=== PATIENT | female | born 1975 | race Caucasian/White ===

== ENCOUNTER 2018-05-15 11:47 | Inpatient (IN) | payer OTHER ==
[2018-05-15 13:03] VITALS: BMI 24.7
--- NOTE | 2018-05-15 13:49 | HP ---
CIWA Score Nausea/Vomitin Muscle Tremors: 2 Anxiety: 2 Agitation: 2 Paroxysmal Sweats: 1-Minimal Palms Moist Orientation: 0-Oriented Tacttile Disturbances: 1-Very Mild Itch/Numbness Auditory Disturbances: 1-Very Mild Visual Disturbances: 0-None Headache: 2-Mild CIWA-Ar Total Score: 13 - Admission Criteria OASAS Guidelines: Admission for Medically Managed Detox: Requires at least one of the followin. CIWA greater than 12 2. Seizures within the past 24 hours 3. Delirium tremens within the past 24 hours 4. Hallucinations within the past 24 hours 5. Acute intervention needed for co occurring medical disorder 6. Acute intervention needed for co occurring psychiatric disorder 7. Severe withdrawal that cannot be handled at a lower level of care (continued vomiting, continued diarrhea, abnormal vital signs) requiring intravenous medication and/or fluids 8. Admission ROS S - HPI Chief Complaint: i need help to stop drinking alcohol,cocaine,heroin abused mmtp 110 mgs/day Allergies/Adverse Reactions: Allergies Allergy/AdvReac Type Severity Reaction Status Date / Time No Known Allergies Allergy Verified 05/15/18 12:56 History of Present Illness: this 42 years old female with alcohol,cocaine dependence,heroin abused,mmtp 110 mgs/day, hepatitis c follow up with pmd nicotine dependence on nicotine patch and gum last detox [facility] 03/27 not completed bipolar disorder no medication for 4 moths longest sobriety 8 years plan for out patient program,mmtp after detox - Ebola screening Have you traveled outside of the country in the last 21 days: No (N) Have you had contact with anyone from an Ebola affected area: No Do you have a fever: No - Review of Systems Constitutional: Loss of Appetite, Malaise, Night Sweats, Changes in sleep EENT: reports: Nose Congestion Respiratory: reports: No Symptoms reported Cardiac: reports: No Symptoms Reported GI: reports: Diarrhea, Nausea, Poor Appetite : reports: No Symptoms Reported Musculoskeletal: reports: Muscle Pain Integumentary: reports: Dryness Neuro: reports: Headache, Tremors Endocrine: reports: No Symptoms Reported Hematology: reports: No Symptoms Reported Psychiatric: reports: No Sypmtoms Reported, Judgement Intact, Mood/Affect Appropiate, Orientated x3, other (bipolar disorder) Other Systems: Reviewed and Negative Patient History - Patient Medical History Hx Anemia: No Hx Asthma: No Hx Chronic Obstructive Pulmonary Disease (COPD): No Hx Cancer: No Hx Cardiac Disorders: No Hx Congestive Heart Failure: No Hx Hypertension: No Hx Hypercholesterolemia: No Hx Pacemaker: No HX Cerebrovascular Accident: No Hx Seizures: No Hx Dementia: No Hx Diabetes: No Hx Gastrointestinal Disorders: No Hx Liver Disease: No Hx Genitourinary Disorders: No Hx Sexually Transmitted Disorders: No Hx Renal Disease (ESRD): No Hx Thyroid Disease: No Hx Human Immunodeficiency Virus (HIV): No (last tested 2016 negative) Hx Hepatitis C: Yes (follow up by pmd no treatemnt) Hx Depression: No Hx Suicide Attempt: No Hx Bipolar Disorder: Yes (no med) Hx Schizophrenia: No Other Medical History: no suicidal,no hmicidal - Patient Surgical History Past Surgical History: No - PPD History Previous Implant?: Yes Documented Results: Positive w/o proof Implanted On Prior [facility] Admission?: No PPD to be Administered?: No - Reproductive History Patient is a Female of Child Bearing Age (11 -55 yrs old): Yes Last Menstrual Period: 05/09/18 Patient : No - Smoking Cessation Smoking history: Current every day smoker Have you smoked in the past 12 months: Yes Aproximately how many cigarettes per day: 20 Cigars Per Day: 0 Hx Chewing Tobacco Use: No Initiated information on smoking cessation: Yes 'Breaking Loose' booklet given: 05/15/18 - Substance & Tx. History Hx Alcohol Use: Yes Hx Substance Use: Yes Substance Use Type: Alcohol, Cocaine, Heroin Hx Substance Use Treatment: Yes ([facility] 03/27 not completed) - Substances abused Heroin Substance route: Injection Frequency: Daily Amount used: 1 bundle Age of first use: 17 Date of last use: 05/15/18 Alcohol Substance route: Oral Frequency: Daily Amount used: 5 beers ( 40 oz ). Age of first use: 15 Date of last use: 05/15/18 Cocaine Substance route: Injection Frequency: Daily Amount used: 20 bags Age of first use: 17 Date of last use: 05/15/18 Family Disease History - Family Disease History Family Disease History: Other: Brother (dsa.), Sister (dsa) Admission Physical Exam [facility] - Vital Signs Vital Signs: Vital Signs - 24 hr 05/15/18 05/15/18 12:56 13:26 Temperature 98.1 F 98.1 F Pulse Rate 65 65 Respiratory 18 18 Rate Blood Pressure 112/68 112/68 - Physical General Appearance: Yes: Moderate Distress, Tremorous, Irritable, Sweating, Anxious HEENTM: Yes: Normal ENT Inspection, CRYSTAL, Pharynx Normal Respiratory: Yes: Lungs Clear, Normal Breath Sounds, No Respiratory Distress Neck: Yes: Within Normal Limits, Supple, Trachea in good position Breast: Yes: Breast Exam Deferred Cardiology: Yes: Within Normal Limits, Regular Rhythm, Regular Rate, S1, S2 Abdominal: Yes: Within Normal Limits, Normal Bowel Sounds, Non Tender, Flat Genitourinary: Yes: Within Normal Limits Back: Yes: Muscle Spasm Musculoskeletal: Yes: Back pain, Muscle Pain Extremities: Yes: Tremors Neurological: Yes: edger hand II-XII NML intact, Alert, Motor Strength 5/5 Integumentary: Yes: Dry Lymphatic: Yes: Within Normal Limits - Diagnostic (1) Alcohol dependence with uncomplicated withdrawal Current Visit: Yes Status: Acute (2) Uncomplicated sedative, hypnotic or anxiolytic withdrawal Current Visit: Yes Status: Acute (3) Heroin abuse Current Visit: Yes Status: Acute (4) Methadone maintenance therapy patient Current Visit: Yes Status: Acute (5) IVDU (intravenous drug user) Current Visit: Yes Status: Acute (6) Nicotine dependence Current Visit: Yes Status: Acute (7) Hepatitis C Current Visit: Yes Status: Acute (8) Positive PPD Current Visit: Yes Status: Acute (9) Methadone maintenance therapy patient Current Visit: Yes Status: Acute Cleared for Admission S - Detox or Rehab [facility] Level of Care: Medically Managed Detox Regimen/Protocol: Valium Breathalyzer - Breathalyzer Breathalyzer: 0 POC Urine test - Test device test lot number: [id number] Expiration date: 10/07/19 - Control test control: Yes - Result Urine Test Results: Negative - NO line present Urine Drug Screen - Test Device Lot number: [id number] Expiration date: 01/06/20 - Control Is test valid?: Yes - Results Drug screen NEGATIVE: No Urine drug screen results: ELAINE-Cocaine, FEN-Fentanyl, MOP-Opiates, MTD-Methadone , BZO-Benzodiazepines Inpatient Rehab Admission - Rehab Decision to Admit Inpatient rehab admission?: No
[2018-05-15] MEDS ORDERED: IBUPROFEN 400 MG TABLET (FP) PO PRN (14:04)
[2018-05-15] MEDS ORDERED: MENTHOL/PHENOL 1 EACH UD MM PRN (14:04)
[2018-05-15] MEDS ORDERED: ACETAMINOPHEN 325 MG TABLET (FP) PO PRN ×2 (14:04)
[2018-05-15] MEDS ORDERED: MAGNESIUM HYDROX 2400MG/30ML ORAL SUSPENSION 30 ML CUP PO PRN (14:04)
[2018-05-15] MEDS ORDERED: MAG HYDROX/AL HYDROX/SIMETH 30 ML UNIT-DOSE CUP PO PRN (14:04)
[2018-05-15] MEDS ORDERED: METHOCARBAMOL 500 MG TABLET PO PRN (14:04)
[2018-05-15] MEDS ORDERED: MAGNESIUM CITRATE 300 ML BOTTLE PO PRN (14:04)
[2018-05-15] MEDS ORDERED: BISMUTH SUBSALICYLATE 262 MG/15 ML BTL PO PRN (14:04)
[2018-05-15] MEDS ORDERED: hydrOXYzine PAMOATE 25 MG CAPSULE (FP) PO PRN (14:04)
[2018-05-15] MEDS: NICOTINE 21 MG/24 HOURS TOPICAL PATCH TD SCH (15:02)
[2018-05-15] MEDS: diazePAM 5 MG TABLET PO PRN (15:04)
--- NOTE | 2018-05-15 15:31 | EKG ---
Test Reason : Blood Pressure : / mmHG Vent. Rate : 056 BPM Atrial Rate : 056 BPM P-R Int : 146 ms QRS Dur : 078 ms QT Int : 468 ms P-R-T Axes : 072 065 054 degrees QTc Int : 451 ms SINUS BRADYCARDIA MINIMAL VOLTAGE CRITERIA FOR LVH, MAY BE NORMAL VARIANT BORDERLINE ECG NO PREVIOUS ECGS AVAILABLE Confirmed by MD Andrade, Bean ([id number]) on 05/15/2018 3:31:23 PM Referred By: Confirmed By:Bean Zafar MD
[2018-05-15] MEDS ORDERED: hydrOXYzine HCL 25 MG TABLET (FP) PO PRN (18:47)
[2018-05-15 19:22] LABS: PH,URINE 5.5 (5.0-8.0); URINE APPEARANCE TURBID; URINE BILIRUBIN NEGATIVE (NEGATIVE); URINE COLOR YELLOW; URINE GLUCOSE (UA) NEGATIVE (NEGATIVE); URINE KETONE NEGATIVE (NEGATIVE); URINE LEUK ESTERASE NEGATIVE (NEGATIVE); URINE NITRITE NEGATIVE (NEGATIVE); URINE PROTEIN NEGATIVE (NEGATIVE); URINE UROBILINOGEN 0.2 mg/dL (0.2-1.0)
[2018-05-15] MEDS: THIAMINE HCL 100 MG TABLET (FP) PO SCH (21:39)
[2018-05-15] MEDS: diazePAM 5 MG TABLET PO SCH (21:40)
[2018-05-15] MEDS: MELATONIN 5 MG TABLETS PO PRN (21:40)
[2018-05-15] MEDS ORDERED: NICOTINE POLACRILEX 4 MG GUM BUC PRN (22:20)
--- NOTE | 2018-05-15 22:21 | PN ---
S Progress Note Note: Vital Signs Temperature 96.7 F L 05/15/18 21:42 Pulse Rate 64 05/15/18 21:42 Respiratory Rate 16 05/15/18 21:42 Blood Pressure 130/90 05/15/18 21:42 O2 Sat by Pulse Oximetry (%) patient requested nicotine gum reports smokes to pack per day 4mg gum ordered
[2018-05-16] MEDS: diazePAM 5 MG TABLET PO SCH ×3 (06:24→22:10)
[2018-05-16] MEDS ORDERED: METHADONE HCL 10 MG TABLET PO ONE (08:18)
[2018-05-16] MEDS ORDERED: METHADONE 80 MG, METHADONE 30 MG PO ONE (08:35)
[2018-05-16] MEDS: diazePAM 5 MG TABLET PO PRN ×2 (08:51→18:45)
[2018-05-16] MEDS ORDERED: METHADONE HCL 10 MG TABLET ONE (09:27)
[2018-05-16] MEDS ORDERED: METHADONE HCL 40 MG DISPERSABLE TABLET ONE (09:28)
[2018-05-16 09:54] LABS: ALK PHOS 63 U/L (45-117); ANION GAP 6 MMOL/L (8-16); BILIRUBIN,TOTAL 0.1 mg/dL (0.2-1); BLOOD UREA NITROGEN 12 mg/dL (7-18); CALCIUM 7.6 mg/dL (8.5-10.1); CHLORIDE 106 mmol/L (98-107); CO2 29 mmol/L (21-32); CREATININE 0.6 mg/dL (0.55-1.3); GLUCOSE,RANDOM 96 mg/dL (74-106); POTASSIUM 3.6 mmol/L (3.5-5.1); SGOT/AST 14 U/L (15-37); SGPT/ALT 17 U/L (13-61); SODIUM 141 mmol/L (136-145); TOT PROT 6.4 g/dl (6.4-8.2)
[2018-05-16 10:07] LABS: HEMATOCRIT 38.1 % (32.4-45.2); HEMOGLOBIN 12.6 GM/dL (10.7-15.3); MCH 29.4 pg (25.7-33.7); MCHC 33.1 g/dl (32.0-36.0); MEAN CELL VOLUME 88.6 fl (80-96); MEAN PLT VOLUME 7.7 fl (7.5-11.1); PLATELET COUNT 218 K/MM3 (134-434); RDW 13.3 % (11.6-15.6); WHITE BLOOD COUNT 4.1 K/mm3 (4.0-10.0)
[2018-05-16] MEDS: NICOTINE 21 MG/24 HOURS TOPICAL PATCH TD SCH (10:39)
[2018-05-16] MEDS: PRENATAL VITAMINS W/ FOLIC ACID TABLET (FP) PO SCH (10:41)
[2018-05-16 11:15] LABS: SICKLE CELL SCREEN NEGATIVE (NEGATIVE)
--- NOTE | 2018-05-16 12:54 | CONSULT ---
[facility] Psychiatric Consult - Data Date of interview: 05/16/18 Admission source: [facility] Identifying data: First admission to [facility] for this 42 y/o female self-referred for detoxification treatment (alcohol, cocaine, heroin). Examined at [address] [place] [address]. Patient is , a mother of eight, domiciled, unemployed and supporeted on SSI benefits. Substance Abuse History: Confirmed by patient in this interview. Ms Tinajero admits to chronic use of xanax (bought in the streets), heroin (IVDU) up to two bundles a day and spends an average of 100 dollars daily on cocaine (IVDU) + consumption of 6-10 beers a day. Smokes one pack of cigarettes daily. Additional details in current [facility] report : Details in current [facility] report as follows : Smoking history: Current every day smoker. Have you smoked in the past 12 months: Yes. Aproximately how many cigarettes per day: 20. Cigars Per Day: 0. Hx Chewing Tobacco Use: No. Initiated information on smoking cessation : Yes. 'Breaking Loose' booklet given: 05/15/18. - Substance & Tx. History. Hx Alcohol Use: Yes. Hx Substance Use: Yes. Substance Use Type: Alcohol, Cocaine, Heroin. Hx Substance [facility]: [facility] . - Substances abused. Heroin. Substance route: Injection. Frequency: Daily. Amount used: 1 bundle. Age of first use: 17. Date of last use: . Alcohol. Substance route: Oral. Frequency: Daily. Amount used: 5 beers ( 40 oz ). Age of first use: 15. Date of last use: 05/15/18. Cocaine. Substance route: Injection. Frequency: Daily. Amount used: 20 bags. Age of first use: 17. Date of last use: 05/15/18 Medical History: Remarkable for a history of positive PPD, hepatitis C, cirrhosis of liver (patient's report), hypertension and bronchial asthma. Psychiatric History: Patient endorses a history of one psychiatric hospitalization, years ago, at a facility in [place]. Reportedly diagnosed with MDD and Bipolar Disorder. Ms Tinajero remembers past treatment on a regimen of aripriprazole, zolpidem and " another medication ". She has NOT taken these medications for four months. Used to get psychiatric OPD services at [facility]. History of one suicide attempt via overdose with pills. Patient is currently on methadone maintenance (110 mg/day). Physical/Sexual Abuse/Trauma History: Patient declines to discuss this domain. Additional Comment: Urine drug screen results: ELAINE-Cocaine, FEN-Fentanyl, MOP- Opiates, MTD-Methadone, BZO-Benzodiazepines. Noted. Mental Status Exam - Mental Status Exam Alert and Oriented to: Time, Place, Person Cognitive Function: Good Patient Appearance: Well Groomed Mood: Nervous, Withdrawn, Anxious, Irritable Affect: Appropriate, Mood Congruent Patient Behavior: Fatigued, Appropriate, Cooperative Speech Pattern: Clear (faroese-fluent) Voice Loudness: Normal Thought Process: Goal Oriented Thought Disorder: Not Present Hallucinations: Denies Suicidal Ideation: Denies Homicidal Ideation: Denies Insight/Judgement: Poor Sleep: Poorly, Difficulty falling asleep Appetite: Good Muscle strength/Tone: Normal Gait/Station: Normal Psychiatric Findings - Problem List ([place] 1, 2,3) (1) Alcohol dependence with uncomplicated withdrawal Current Visit: Yes Status: Acute (2) Uncomplicated sedative, hypnotic or anxiolytic withdrawal Current Visit: Yes Status: Acute (3) Opioid dependence on agonist therapy Current Visit: Yes Status: Chronic (4) Cocaine dependence Current Visit: Yes Status: Chronic (5) Nicotine dependence Current Visit: Yes Status: Chronic (6) Substance induced mood disorder Current Visit: Yes Status: Chronic (7) Insomnia Current Visit: Yes Status: Chronic (8) Non-compliance Current Visit: Yes Status: Chronic - Initial Treatment Plan Initial Treatment Plan: Psychoeducation. Sleep hygiene. Support. Strategies for relapse prevention : discussed in this session. Motivational counseling. AA/NA meetings. Groups. Insomnia is addressed with melatonin at bedtime. Side effects/ benefits discussed. Patient is agreeable with this plan of care. Ms Tinajero declines to resume aripriprazole. Observation.
--- NOTE | 2018-05-16 15:51 | PN ---
[facility] CIWA - CIWA Score Nausea/Vomitin-Mild Nausea/No Vomiting Muscle Tremors: 2 Anxiety: 1-Mildly Anxious Agitation: 2 Paroxysmal Sweats: 1-Minimal Palms Moist Orientation: 0-Oriented Tacttile Disturbances: 0-None Auditory Disturbances: 0-None Visual Disturbances: 0-None Headache: 0-None Present CIWA-Ar Total Score: 7 S Progress Note (SOAP) Subjective: patient received methadone 110 mg today doing better this afternoon ambulating on hallway Objective: 05/16/18 15:49 Vital Signs Temperature 98.4 F 05/16/18 13:36 Pulse Rate 72 05/16/18 13:36 Respiratory Rate 18 05/16/18 13:36 Blood Pressure 126/70 05/16/18 13:36 O2 Sat by Pulse Oximetry (%) Laboratory Last Values WBC 4.1 K/mm3 (4.0-10.0) 05/16/18 07:00 RBC 4.30 M/mm3 (3.60-5.2) 05/16/18 07:00 Hgb 12.6 GM/dL (10.7-15.3) 05/16/18 07:00 Hct 38.1 % (32.4-45.2) 05/16/18 07:00 MCV 88.6 fl (80-96) 05/16/18 07:00 MCH 29.4 pg (25.7-33.7) 05/16/18 07:00 MCHC 33.1 g/dl (32.0-36.0) 05/16/18 07:00 RDW 13.3 % (11.6-15.6) 05/16/18 07:00 Plt Count 218 K/MM3 (134-434) 05/16/18 07:00 MPV 7.7 fl (7.5-11.1) 05/16/18 07:00 Sickle Cell Screen Negative (NEGATIVE) 05/16/18 07:00 Sodium 141 mmol/L (136-145) 05/16/18 07:00 Potassium 3.6 mmol/L (3.5-5.1) 05/16/18 07:00 Chloride 106 mmol/L (98-107) 05/16/18 07:00 Carbon Dioxide 29 mmol/L (21-32) 05/16/18 07:00 Anion Gap 6 MMOL/L (8-16) L 05/16/18 07:00 BUN 12 mg/dL (7-18) 05/16/18 07:00 Creatinine 0.6 mg/dL (0.55-1.3) 05/16/18 07:00 Creat Clearance w eGFR 110.72 (>60) 05/16/18 07:00 Random Glucose 96 mg/dL (74-106) 05/16/18 07:00 Calcium 7.6 mg/dL (8.5-10.1) L 05/16/18 07:00 Total Bilirubin 0.1 mg/dL (0.2-1) L 05/16/18 07:00 AST 14 U/L (15-37) L 05/16/18 07:00 ALT 17 U/L (13-61) 05/16/18 07:00 Alkaline Phosphatase 63 U/L (45-117) 05/16/18 07:00 Total Protein 6.4 g/dl (6.4-8.2) 05/16/18 07:00 Albumin 3.0 g/dl (3.4-5.0) L 05/16/18 07:00 Urine Color Yellow 05/15/18 15:40 Urine Appearance Turbid 05/15/18 15:40 Urine pH 5.5 (5.0-8.0) 05/15/18 15:40 Ur Specific [place] 1.020 (1.010-1.035) 05/15/18 15:40 Urine Protein Negative (NEGATIVE) 05/15/18 15:40 Urine Glucose (UA) Negative (NEGATIVE) 05/15/18 15:40 Urine Ketones Negative (NEGATIVE) 05/15/18 15:40 Urine Blood Negative (NEGATIVE) 05/15/18 15:40 Urine Nitrite Negative (NEGATIVE) 05/15/18 15:40 Urine Bilirubin Negative (NEGATIVE) 05/15/18 15:40 Urine Urobilinogen 0.2 mg/dL (0.2-1.0) 05/15/18 15:40 Ur Leukocyte Esterase Negative (NEGATIVE) 05/15/18 15:40 RPR Titer Nonreactive (NONREACTIVE) 05/16/18 07:00 lab noted low calcium ca++ supplement 05/16/18 15:50 Assessment: 05/16/18 15:51 withdrawal sx Plan: continue detox
[2018-05-16] MEDS: CALCIUM 250MG/VIT-D 125 UNITS 1 COMBO TABLET PO SCH (22:09)
[2018-05-16] MEDS: THIAMINE HCL 100 MG TABLET (FP) PO SCH (22:09)
[2018-05-16] MEDS: MELATONIN 5 MG TABLETS PO PRN (22:10)
[2018-05-17] MEDS ORDERED: METHADONE HCL 10 MG TABLET ONE ×2 (04:32→08:41)
[2018-05-17] MEDS ORDERED: METHADONE HCL 40 MG DISPERSABLE TABLET ONE ×2 (04:33→08:42)
[2018-05-17] MEDS ORDERED: METHADONE 80 MG, METHADONE 30 MG PO SCH (06:00)
[2018-05-17] MEDS ORDERED: METHADONE HCL 10 MG TABLET PO SCH (06:00)
[2018-05-17] MEDS: CALCIUM 250MG/VIT-D 125 UNITS 1 COMBO TABLET PO SCH ×2 (10:20→22:12)
[2018-05-17] MEDS: diazePAM 5 MG TABLET PO SCH ×2 (10:20→22:12)
[2018-05-17] MEDS: METHADONE 80 MG, METHADONE 30 MG PO SCH (10:20)
[2018-05-17] MEDS: PRENATAL VITAMINS W/ FOLIC ACID TABLET (FP) PO SCH (10:20)
[2018-05-17] MEDS: NICOTINE 21 MG/24 HOURS TOPICAL PATCH TD SCH (10:21)
[2018-05-17] MEDS: diazePAM 5 MG TABLET PO PRN (13:39)
--- NOTE | 2018-05-17 15:03 | PN ---
[facility] CIWA - CIWA Score Nausea/Vomitin-No Nausea/No Vomiting Muscle Tremors: 1-None Visible, but [place] Anxiety: 1-Mildly Anxious Agitation: 1-Slight > Activity Paroxysmal Sweats: 1-Minimal Palms Moist Orientation: 0-Oriented Tacttile Disturbances: 0-None Auditory Disturbances: 0-None Visual Disturbances: 0-None Headache: 0-None Present CIWA-Ar Total Score: 4 BHS Progress Note (SOAP) Subjective: feeling better patient agrees to return to methadone program for medical and mental issues Objective: 05/17/18 15:02 Vital Signs Temperature 98.1 F 05/17/18 13:27 Pulse Rate 64 05/17/18 13:27 Respiratory Rate 16 05/17/18 13:27 Blood Pressure 129/89 05/17/18 13:27 O2 Sat by Pulse Oximetry (%) Laboratory Last Values WBC 4.1 K/mm3 (4.0-10.0) 05/16/18 07:00 RBC 4.30 M/mm3 (3.60-5.2) 05/16/18 07:00 Hgb 12.6 GM/dL (10.7-15.3) 05/16/18 07:00 Hct 38.1 % (32.4-45.2) 05/16/18 07:00 MCV 88.6 fl (80-96) 05/16/18 07:00 MCH 29.4 pg (25.7-33.7) 05/16/18 07:00 MCHC 33.1 g/dl (32.0-36.0) 05/16/18 07:00 RDW 13.3 % (11.6-15.6) 05/16/18 07:00 Plt Count 218 K/MM3 (134-434) 05/16/18 07:00 MPV 7.7 fl (7.5-11.1) 05/16/18 07:00 Sickle Cell Screen Negative (NEGATIVE) 05/16/18 07:00 Sodium 141 mmol/L (136-145) 05/16/18 07:00 Potassium 3.6 mmol/L (3.5-5.1) 05/16/18 07:00 Chloride 106 mmol/L (98-107) 05/16/18 07:00 Carbon Dioxide 29 mmol/L (21-32) 05/16/18 07:00 Anion Gap 6 MMOL/L (8-16) L 05/16/18 07:00 BUN 12 mg/dL (7-18) 05/16/18 07:00 Creatinine 0.6 mg/dL (0.55-1.3) 05/16/18 07:00 Creat Clearance w eGFR 110.72 (>60) 05/16/18 07:00 Random Glucose 96 mg/dL (74-106) 05/16/18 07:00 Calcium 7.6 mg/dL (8.5-10.1) L 05/16/18 07:00 Total Bilirubin 0.1 mg/dL (0.2-1) L 05/16/18 07:00 AST 14 U/L (15-37) L 05/16/18 07:00 ALT 17 U/L (13-61) 05/16/18 07:00 Alkaline Phosphatase 63 U/L (45-117) 05/16/18 07:00 Total Protein 6.4 g/dl (6.4-8.2) 05/16/18 07:00 Albumin 3.0 g/dl (3.4-5.0) L 05/16/18 07:00 Urine Color Yellow 05/15/18 15:40 Urine Appearance Turbid 05/15/18 15:40 Urine pH 5.5 (5.0-8.0) 05/15/18 15:40 Ur Specific [place] 1.020 (1.010-1.035) 05/15/18 15:40 Urine Protein Negative (NEGATIVE) 05/15/18 15:40 Urine Glucose (UA) Negative (NEGATIVE) 05/15/18 15:40 Urine Ketones Negative (NEGATIVE) 05/15/18 15:40 Urine Blood Negative (NEGATIVE) 05/15/18 15:40 Urine Nitrite Negative (NEGATIVE) 05/15/18 15:40 Urine Bilirubin Negative (NEGATIVE) 05/15/18 15:40 Urine Urobilinogen 0.2 mg/dL (0.2-1.0) 05/15/18 15:40 Ur Leukocyte Esterase Negative (NEGATIVE) 05/15/18 15:40 RPR Titer Nonreactive (NONREACTIVE) 05/16/18 07:00 lab noted Assessment: 05/17/18 15:02 mild withdrawal sx Plan: continue detox
[2018-05-17] MEDS: THIAMINE HCL 100 MG TABLET (FP) PO SCH (22:12)
[2018-05-17] MEDS: MELATONIN 5 MG TABLETS PO PRN (23:40)
[2018-05-18] MEDS ORDERED: diazePAM 5 MG TABLET PO SCH (06:00)
[2018-05-18] MEDS ORDERED: METHADONE HCL 10 MG TABLET ONE (09:01)
[2018-05-18] MEDS ORDERED: METHADONE HCL 40 MG DISPERSABLE TABLET ONE (09:02)
[2018-05-18] MEDS: METHADONE 80 MG, METHADONE 30 MG PO SCH (09:03)
[2018-05-18] MEDS: NICOTINE 21 MG/24 HOURS TOPICAL PATCH TD SCH (09:03)
[2018-05-18] MEDS: CALCIUM 250MG/VIT-D 125 UNITS 1 COMBO TABLET PO SCH (09:03)
[2018-05-18 09:20] VITALS: BP 119/89; PULSE 75; TEMP 98.9
--- NOTE | 2018-05-18 18:15 | DS ---
[facility] Detox Discharge Summary Admission Date: 05/15/18 Discharge Date: 05/18/18 - History Present History: Alcohol Dependence, Opioid Dependence, Sedative Dependence, MMTP Additional Comments: PATIENT RETURNING TO PREVIOUS [facility] ([place], [place]) FOR AFTERCARE. PATIENT WAS DISCHARGED FROM DETOX UNIT IN STABLE MEDICAL CONDITION. Pertinent Past History: Hep C, Bipolar Disorder, M.M.T.P., History of Positive PPD, I.V.D.U. ( Intravenous Drug User), Nicotine Dependence. - Physical Exam Results Vital Signs: Vital Signs Temperature 98.9 F 05/18/18 09:19 Pulse Rate 75 05/18/18 09:19 Respiratory Rate 18 05/18/18 09:19 Blood Pressure 119/89 05/18/18 09:19 O2 Sat by Pulse Oximetry (%) Pertinent Admission Physical Exam Findings: WITHDRAWAL SYMPTOMS. Laboratory Tests 05/15/18 05/16/18 05/16/18 15:40 07:00 07:00 WBC 4.1 RBC 4.30 Hgb 12.6 Hct 38.1 MCV 88.6 MCH 29.4 MCHC 33.1 RDW 13.3 Plt Count 218 MPV 7.7 Sickle Cell Screen Negative Sodium 141 Potassium 3.6 Chloride 106 Carbon Dioxide 29 Anion Gap 6 L BUN 12 Creatinine 0.6 Creat Clearance w eGFR 110.72 Random Glucose 96 Calcium 7.6 L Total Bilirubin 0.1 L AST 14 L ALT 17 Alkaline Phosphatase 63 Total Protein 6.4 Albumin 3.0 L Urine Color Yellow Urine Appearance Turbid Urine pH 5.5 Ur Specific [place] 1.020 Urine Protein Negative Urine Glucose (UA) Negative Urine Ketones Negative Urine Blood Negative Urine Nitrite Negative Urine Bilirubin Negative Urine Urobilinogen 0.2 Ur Leukocyte Esterase Negative RPR Titer 05/16/18 07:00 WBC RBC Hgb Hct MCV MCH MCHC RDW Plt Count MPV Sickle Cell Screen Sodium Potassium Chloride Carbon Dioxide Anion Gap BUN Creatinine Creat Clearance w eGFR Random Glucose Calcium Total Bilirubin AST ALT Alkaline Phosphatase Total Protein Albumin Urine Color Urine Appearance Urine pH Ur Specific [place] Urine Protein Urine Glucose (UA) Urine Ketones Urine Blood Urine Nitrite Urine Bilirubin Urine Urobilinogen Ur Leukocyte Esterase RPR Titer Nonreactive LABS NOTED. - Treatment Hospital Course: Detox Protocol Followed, Detoxed Safely, Responded well, Discharged Condition Good Patient has Accepted a Rehab Referral to: PT. RETURNING TO [facility]. - Medication Discharge Medications: Ambulatory Orders NK [No Known Home Medication] 05/15/18 - Diagnosis (1) Alcohol dependence with uncomplicated withdrawal Status: Acute (2) Hepatitis C Status: Chronic Qualifiers: Viral hepatitis chronicity: chronic Hepatic coma status: without hepatic coma Qualified Code(s): B18.2 - Chronic viral hepatitis C (3) Heroin abuse Status: Acute (4) IVDU (intravenous drug user) Status: Acute (5) Methadone maintenance therapy patient Status: Acute (6) Positive PPD Status: Chronic (7) Uncomplicated sedative, hypnotic or anxiolytic withdrawal Status: Acute (8) Nicotine dependence Status: Chronic Qualifiers: Nicotine product type: cigarettes Substance use status: uncomplicated Qualified Code(s): F17.210 - Nicotine dependence, cigarettes, uncomplicated - AMA Did Patient Leave Against Medical Advice: No
== END 2018-05-18 10:05 | disposition home or self-care (01) | DRG 773 ==
LOC: YASAS 11:47 → Y3N 14:40
PROVIDERS: ADMIT Surgery; ATTEND Surgery
PROC: HZ2ZZZZ Detoxification Services for Substance Abuse Treatment (ICD-10-PCS; principal; 2018-05-15)
DX: F10.230 Alcohol dependence with withdrawal, uncomplicated (principal); F11.20 Opioid dependence, uncomplicated; F13.20 Sedative, hypnotic or anxiolytic dependence, uncomplicated; F14.20 Cocaine dependence, uncomplicated; F17.210 Nicotine dependence, cigarettes, uncomplicated; F19.24 Other psychoactive substance dependence with psychoactive substance-induced mood disorder; B18.2 Chronic viral hepatitis C; R76.11 Nonspecific reaction to tuberculin skin test without active tuberculosis; G47.00 Insomnia, unspecified; K74.60 Unspecified cirrhosis of liver; J45.909 Unspecified asthma, uncomplicated; Z91.19 Patient's noncompliance with other medical treatment and regimen
CPT/HCPCS: 36415; 71046-TC-FY; 80053; 81003; 85027; 85660; 86593; 93005; 93010

== ENCOUNTER 2018-07-20 12:17 | Inpatient (IN) | payer OTHER ==
[2018-07-20 21:35] VITALS: BMI 28.3
--- NOTE | 2018-07-20 23:09 | HP ---
CIWA Score Nausea/Vomitin-Mild Nausea/No Vomiting Muscle Tremors: 4-Moderate,w/Arms Extend Anxiety: 0-No Anxiety, at Ease Agitation: 4-Moderately Restless Paroxysmal Sweats: 3 Orientation: 3-Disoriented Date>2 days Tacttile Disturbances: 0-None Auditory Disturbances: 0-None Visual Disturbances: 2-Mild Sensitivity Headache: 0-None Present CIWA-Ar Total Score: 17 - Admission Criteria OASAS Guidelines: Admission for Medically Managed Detox: Requires at least one of the followin. CIWA greater than 12 2. Seizures within the past 24 hours 3. Delirium tremens within the past 24 hours 4. Hallucinations within the past 24 hours 5. Acute intervention needed for co occurring medical disorder 6. Acute intervention needed for co occurring psychiatric disorder 7. Severe withdrawal that cannot be handled at a lower level of care (continued vomiting, continued diarrhea, abnormal vital signs) requiring intravenous medication and/or fluids 8. Patient presents the following: CIWA greater than 12 Admission Criteria Met: Admission criteria met Admission ROS [facility] Chief Complaint: C/O WORSENING WITHDRAWAL SX'S Allergies/Adverse Reactions: Allergies Allergy/AdvReac Type Severity Reaction Status Date / Time No Known Allergies Allergy Verified 07/20/18 21:29 History of Present Illness: 42 Y.O. FEMALE WITH ALCOHOLISM HERE FOR DETOX. CLIENT IS ON MMTP 110 MG DAILY AT [facility] TODAY PENDING VERIFICATION. SHE IS SELF REFERRED. KNOWN TO THIS PROGRAM LAST HERE 05/2018. PRESENTS WITH C/O WORSENING WITHDRAWAL SX'S. CIWA 17. DRINKS DAILY, LAST DRINK EARLY THIS MORNING. DENIES ANY RECENT CLEAN TIME IN THE PAST 3 YEARS. DENIES HX/O DRUG OVERDOSE, BLACK OUTS, SI/HI AVH. HOMELESS, UNEMPLOYED, OPEN CASE Exam Limitations: No Limitations - Ebola screening Have you traveled outside of the country in the last 21 days: No (NN) Have you had contact with anyone from an Ebola affected area: No Do you have a fever: No - Review of Systems Constitutional: Chills, Loss of Appetite, Night Sweats, Changes in sleep EENT: reports: Dental Problems (MISSING TEETH), Throat Pain (SORE) Respiratory: reports: No Symptoms reported Cardiac: reports: No Symptoms Reported GI: reports: Nausea, Poor Appetite, Poor Fluid Intake, Abdominal cramping : reports: No Symptoms Reported Musculoskeletal: reports: Back Pain, Joint Pain, Neck Pain Integumentary: reports: Other (BLE ABRASIONS) Neuro: reports: Tremors, Unsteady Gait Endocrine: reports: No Symptoms Reported Hematology: reports: No Symptoms Reported Psychiatric: reports: Orientated x3, Agitated (IRRITABLE), Anxious, Depressed ( DENIES SI.HI) Other Systems: Reviewed and Negative Patient History - Patient Medical History Hx Anemia: No Hx Asthma: Yes Hx Chronic Obstructive Pulmonary Disease (COPD): No Hx Cancer: No Hx Cardiac Disorders: No Hx Congestive Heart Failure: No Hx Hypertension: No Hx Hypercholesterolemia: No Hx Pacemaker: No HX Cerebrovascular Accident: No Hx Seizures: No Hx Dementia: No Hx Diabetes: No Hx Gastrointestinal Disorders: No Hx Liver Disease: No Hx Genitourinary Disorders: No Hx Sexually Transmitted Disorders: No Hx Renal Disease (ESRD): No Hx Thyroid Disease: No Hx Human Immunodeficiency Virus (HIV): No Hx Hepatitis C: Yes (follow up by pmd no treatemnt) Hx Depression: Yes Hx Suicide Attempt: No Hx Bipolar Disorder: Yes (no med) Hx Schizophrenia: No Other Medical History: ANXIETY - Patient Surgical History Past Surgical History: No - PPD History Previous Implant?: Yes Documented Results: Positive w/o proof Implanted On Prior [facility] Admission?: No Results: NEG CXR 05/2018 PPD to be Administered?: No - Reproductive History Patient is a Female of Child Bearing Age (11 -55 yrs old): Yes Last Menstrual Period: 07/09/18 Patient : No (NEG [facility]) - Smoking Cessation Smoking history: Current every day smoker Have you smoked in the past 12 months: Yes Aproximately how many cigarettes per day: 10 Cigars Per Day: 0 Hx Chewing Tobacco Use: No Initiated information on smoking cessation: Yes 'Breaking Loose' booklet given: 07/20/18 - Substance & Tx. History Hx Alcohol Use: Yes Hx Substance Use: Yes Substance Use Type: Alcohol, Cocaine, Marijuana, Prescribed (MMTP) Hx Substance Use Treatment: Yes ([facility]) - Substances abused Heroin Substance route: Injection Frequency: Daily Amount used: 1 bundle Age of first use: 17 Date of last use: 07/20/18 Alcohol Substance route: Oral Frequency: Daily Amount used: 5 beers ( 40 oz ). Age of first use: 15 Date of last use: 07/20/18 Cocaine Substance route: Injection Frequency: Daily Amount used: 20 bags Age of first use: 17 Date of last use: 07/20/18 Family Disease History - Family Disease History Family Disease History: Other: Brother (dsa.), Sister (dsa) Admission Physical Exam S - Vital Signs Vital Signs: Vital Signs - 24 hr 07/20/18 07/20/18 21:30 22:24 Temperature 98.2 F 98.2 F Pulse Rate 58 L 58 L Respiratory 18 18 Rate Blood Pressure 139/89 139/89 - Physical General Appearance: Yes: Moderate Distress, Alcohol on Breath, Tremorous, Irritable, Anxious HEENTM: Yes: EOMI, Normocephalic, Normal Voice, CRYSTAL, Pharynx Normal Respiratory: Yes: Chest Non-Tender, Lungs Clear, Normal Breath Sounds, No Respiratory Distress, No Accessory Muscle Use Neck: Yes: No masses,lesions,Nodules, Supple, Trachea in good position Breast: Yes: Breast Exam Deferred Cardiology: Yes: Regular Rhythm, Regular Rate, S1, S2 Abdominal: Yes: Normal Bowel Sounds, Non Tender, Flat, Soft Genitourinary: Yes: Within Normal Limits (NO C/O) Back: Yes: Normal Inspection Musculoskeletal: Yes: Joint Stiffness, Joint swelling (R KNEE 2/2 FALL A FEW DAYS AGO. CLIENT STATES SHE WAS EVALUATED AT ER AND NO FX), Other (UNSTEADY GAIT 2/2/ R KNEE PAIN) Extremities: Yes: Normal Capillary Refill, Normal Range of Motion, Tremors, Erythema (RIGHT FOREARM AND INNER R AND L THIGHS) Neurological: Yes: Fully Oriented, Alert, Depressed Affect Integumentary: Yes: Dry, Warm, Track Eckert (ARMS AND INNER THIGHS), Other ( FLUSHED) Lymphatic: Yes: Within Normal Limits - Diagnostic (1) Asthma Current Visit: Yes Status: Chronic Qualifiers: Asthma severity: mild Asthma persistence: intermittent Asthma complication type: unspecified Qualified Code(s): J45.20 - Mild intermittent asthma, uncomplicated (2) Alcohol dependence with uncomplicated withdrawal Current Visit: Yes Status: Acute (3) Heroin abuse Current Visit: Yes Status: Acute (4) IVDU (intravenous drug user) Current Visit: Yes Status: Acute (5) Methadone maintenance therapy patient Current Visit: Yes Status: Chronic (6) Cocaine dependence Current Visit: Yes Status: Acute Qualifiers: Substance use status: uncomplicated Qualified Code(s): F14.20 - Cocaine dependence, uncomplicated (7) Hepatitis C Current Visit: Yes Status: Chronic Qualifiers: Viral hepatitis chronicity: chronic Hepatic coma status: without hepatic coma Qualified Code(s): B18.2 - Chronic viral hepatitis C (8) Insomnia Current Visit: Yes Status: Chronic (9) Nicotine dependence Current Visit: Yes Status: Chronic Qualifiers: Nicotine product type: cigarettes Substance use status: uncomplicated Qualified Code(s): F17.210 - Nicotine dependence, cigarettes, uncomplicated (10) Positive PPD Current Visit: Yes Status: Chronic (11) Substance induced mood disorder Current Visit: Yes Status: Suspected (12) Risk for falls Current Visit: Yes Status: Chronic (13) Dry mucous membranes Current Visit: Yes Status: Acute (14) Swelling of right knee joint Current Visit: Yes Status: Acute (15) Track eckert due to intravenous drug abuse Current Visit: Yes Status: Chronic Cleared for Admission S - Detox or Rehab [facility] Level of Care: Medically Managed Detox Regimen/Protocol: Librium Claeared for Rehab Admission: No Breathalyzer - Breathalyzer Breathalyzer: 0 POC Urine test - Test device test lot number: [id number] Expiration date: 10/07/19 - Control test control: Yes Urine Drug Screen - Test Device Lot number: [id number] Expiration date: 04/05/20 - Control Is test valid?: Yes - Results Drug screen NEGATIVE: No Urine drug screen results: THC-Marijuana, ELAINE-Cocaine, FEN-Fentanyl, MOP-Opiates , MTD-Methadone, BZO-Benzodiazepines Inpatient Rehab Admission - Rehab Decision to Admit Inpatient rehab admission?: No
[2018-07-20] MEDS ORDERED: IBUPROFEN 400 MG TABLET (FP) PO PRN (23:16)
[2018-07-20] MEDS ORDERED: guaiFENesin 200 MG/10 ML 10 ML UNIT-DOSE CUPS PO PRN (23:16)
[2018-07-20] MEDS ORDERED: ACETAMINOPHEN 325 MG TABLET (FP) PO PRN ×2 (23:16)
[2018-07-20] MEDS ORDERED: METHOCARBAMOL 500 MG TABLET PO PRN (23:16)
[2018-07-20] MEDS ORDERED: MAG HYDROX/AL HYDROX/SIMETH 30 ML UNIT-DOSE CUP PO PRN (23:16)
[2018-07-20] MEDS ORDERED: MAGNESIUM HYDROX 2400MG/30ML ORAL SUSPENSION 30 ML CUP PO PRN (23:16)
[2018-07-20] MEDS ORDERED: DICYCLOMINE HCL 10 MG CAPSULE PO PRN (23:16)
[2018-07-20] MEDS ORDERED: BISMUTH SUBSALICYLATE 524 MG/30 ML UD PO PRN (23:16)
[2018-07-20] MEDS ORDERED: MENTHOL/PHENOL 1 EACH UD MM PRN (23:16)
[2018-07-20] MEDS ORDERED: chlordiazePOXIDE HCL 25 MG CAPSULE PO PRN (23:16)
[2018-07-20] MEDS ORDERED: ONDANSETRON *ODT* 4 MG TABLET SL PRN (23:16)
[2018-07-20] MEDS ORDERED: MAGNESIUM CITRATE 300 ML BOTTLE PO PRN (23:16)
[2018-07-20] MEDS ORDERED: P-EPHED 60MG/TRIPROLIDI 2.5MG TABLET PO PRN (23:16)
[2018-07-20] MEDS ORDERED: MELATONIN 5 MG TABLETS PO PRN (23:16)
[2018-07-21] MEDS: chlordiazePOXIDE HCL 25 MG CAPSULE PO SCH ×5 (00:35→22:11)
[2018-07-21] MEDS ORDERED: METHADONE HCL 10 MG TABLET PO SCH (09:15)
[2018-07-21] MEDS ORDERED: METHADONE HCL 40 MG DISPERSABLE TABLET ONE (09:42)
[2018-07-21] MEDS ORDERED: METHADONE HCL 10 MG TABLET ONE (09:42)
[2018-07-21] MEDS: PRENATAL VITAMINS W/ FOLIC ACID TABLET (FP) PO SCH (10:30)
[2018-07-21] MEDS: METHADONE 80 MG, METHADONE 30 MG PO SCH (10:30)
[2018-07-21] MEDS: NICOTINE 14 MG/24 HOURS TOPICAL PATCH TD SCH (10:30)
[2018-07-21 10:41] LABS: ALBUMIN 3.3 g/dl (3.4-5.0); BILIRUBIN,TOTAL 0.2 mg/dL (0.2-1); CALCIUM 9.1 mg/dL (8.5-10.1); CREATININE 0.7 mg/dL (0.55-1.3); POTASSIUM 4.5 mmol/L (3.5-5.1); TOT PROT 6.9 g/dl (6.4-8.2)
[2018-07-21 11:15] LABS: HEMATOCRIT 39.4 % (32.4-45.2); HEMOGLOBIN 13.1 GM/dL (10.7-15.3); MCH 28.5 pg (25.7-33.7); MCHC 33.3 g/dl (32.0-36.0); MEAN CELL VOLUME 85.5 fl (80-96); MEAN PLT VOLUME 8.1 fl (7.5-11.1); RDW 12.5 % (11.6-15.6); WHITE BLOOD COUNT 4.4 K/mm3 (4.0-10.0)
[2018-07-21 11:33] LABS: PLATELET COUNT 237 K/MM3 (134-434)
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
--- NOTE | 2018-07-21 13:09 | PN ---
S CIWA - CIWA Score Nausea/Vomitin-Mild Nausea/No Vomiting Muscle Tremors: 3 Anxiety: 2 Agitation: 1-Slight > Activity Paroxysmal Sweats: 3 Orientation: 0-Oriented Tacttile Disturbances: 0-None Auditory Disturbances: 0-None Visual Disturbances: 0-None Headache: 0-None Present CIWA-Ar Total Score: 10 S Progress Note (SOAP) Subjective: sweats shakes Objective: 07/21/18 13:08 A & O x 3 Gait steady Skin flushed Vital Signs Temperature 97.9 F 07/21/18 10:00 Pulse Rate 56 L 07/21/18 10:00 Respiratory Rate 18 07/21/18 10:00 Blood Pressure 140/86 07/21/18 10:00 O2 Sat by Pulse Oximetry (%) Laboratory Last Values WBC 4.4 K/mm3 (4.0-10.0) 07/21/18 07:40 RBC 4.60 M/mm3 (3.60-5.2) 07/21/18 07:40 Hgb 13.1 GM/dL (10.7-15.3) 07/21/18 07:40 Hct 39.4 % (32.4-45.2) 07/21/18 07:40 MCV 85.5 fl (80-96) 07/21/18 07:40 MCH 28.5 pg (25.7-33.7) 07/21/18 07:40 MCHC 33.3 g/dl (32.0-36.0) 07/21/18 07:40 RDW 12.5 % (11.6-15.6) 07/21/18 07:40 Plt Count 237 K/MM3 (134-434) 07/21/18 07:40 MPV 8.1 fl (7.5-11.1) 07/21/18 07:40 Sodium 141 mmol/L (136-145) 07/21/18 07:40 Potassium 4.5 mmol/L (3.5-5.1) 07/21/18 07:40 Chloride 106 mmol/L (98-107) 07/21/18 07:40 Carbon Dioxide 31 mmol/L (21-32) 07/21/18 07:40 Anion Gap 3 MMOL/L (8-16) L 07/21/18 07:40 BUN 7.0 mg/dL (7-18) 07/21/18 07:40 Creatinine 0.7 mg/dL (0.55-1.3) 07/21/18 07:40 Est GFR (CKD-EPI)AfAm 125.61 07/21/18 07:40 Est GFR (CKD-EPI)NonAf 108.38 07/21/18 07:40 Random Glucose 107 mg/dL (74-106) H 07/21/18 07:40 Calcium 9.1 mg/dL (8.5-10.1) 07/21/18 07:40 Total Bilirubin 0.2 mg/dL (0.2-1) 07/21/18 07:40 AST 24 U/L (15-37) 07/21/18 07:40 ALT 22 U/L (13-61) 07/21/18 07:40 Alkaline Phosphatase 55 U/L (45-117) 07/21/18 07:40 Total Protein 6.9 g/dl (6.4-8.2) 07/21/18 07:40 Albumin 3.3 g/dl (3.4-5.0) L 07/21/18 07:40 RPR Titer Nonreactive (NONREACTIVE) 07/21/18 07:40 labs noted Assessment: 07/21/18 13:09 withdrawal sx Plan: continue detox
[2018-07-21] MEDS: hydrOXYzine PAMOATE 25 MG CAPSULE (FP) PO PRN (13:42)
[2018-07-21] MEDS: ALBUTEROL SO4 8 GM HFA INHALER IH PRN (14:36)
[2018-07-21] MEDS: THIAMINE HCL 100 MG TABLET (FP) PO SCH (22:11)
[2018-07-22] MEDS ORDERED: METHADONE HCL 10 MG TABLET ONE (04:09)
[2018-07-22] MEDS ORDERED: METHADONE HCL 40 MG DISPERSABLE TABLET ONE (04:09)
[2018-07-22] MEDS: chlordiazePOXIDE HCL 25 MG CAPSULE PO SCH ×3 (05:24→17:03)
[2018-07-22] MEDS: METHADONE 80 MG, METHADONE 30 MG PO SCH (05:25)
[2018-07-22] MEDS: NICOTINE 14 MG/24 HOURS TOPICAL PATCH TD SCH (10:10)
[2018-07-22] MEDS: PRENATAL VITAMINS W/ FOLIC ACID TABLET (FP) PO SCH (10:10)
[2018-07-22] MEDS: NICOTINE POLACRILEX 4 MG GUM BUC PRN ×2 (10:11→22:32)
--- NOTE | 2018-07-22 15:13 | PN ---
S CIWA - CIWA Score Nausea/Vomitin-No Nausea/No Vomiting Muscle Tremors: 3 Anxiety: 3 Agitation: 2 Paroxysmal Sweats: 3 Orientation: 0-Oriented Tacttile Disturbances: 0-None Auditory Disturbances: 0-None Visual Disturbances: 0-None Headache: 0-None Present CIWA-Ar Total Score: 11 BHS Progress Note (SOAP) Subjective: sweats shake interrupted sleep body aches knee pain Objective: 07/22/18 15:10 Laboratory Tests 07/21/18 07/21/18 07/21/18 07:40 07:40 07:40 WBC 4.4 RBC 4.60 Hgb 13.1 Hct 39.4 MCV 85.5 MCH 28.5 MCHC 33.3 RDW 12.5 Plt Count 237 MPV 8.1 Sodium 141 Potassium 4.5 Chloride 106 Carbon Dioxide 31 Anion Gap 3 L BUN 7.0 Creatinine 0.7 Est GFR (CKD-EPI)AfAm 125.61 Est GFR (CKD-EPI)NonAf 108.38 Random Glucose 107 H Calcium 9.1 Total Bilirubin 0.2 AST 24 ALT 22 Alkaline Phosphatase 55 Total Protein 6.9 Albumin 3.3 L RPR Titer Nonreactive Vital Signs Temperature 98.1 F 07/22/18 14:20 Pulse Rate 61 07/22/18 14:20 Respiratory Rate 18 07/22/18 14:20 Blood Pressure 121/73 07/22/18 14:20 O2 Sat by Pulse Oximetry (%) aaox3 ambulating no acute distress Assessment: 07/22/18 15:11 withdrawal sx Plan: continue detox increase fluids motrin 800mg tid prn lidocaine patch cane
[2018-07-22] MEDS: hydrOXYzine PAMOATE 25 MG CAPSULE (FP) PO PRN (20:33)
[2018-07-22] MEDS: THIAMINE HCL 100 MG TABLET (FP) PO SCH (22:04)
[2018-07-22] MEDS: chlordiazePOXIDE HCL 10 MG CAPSULE PO SCH (22:04)
[2018-07-22] MEDS: IBUPROFEN 400 MG TABLET (FP) PO PRN (22:30)
[2018-07-22] MEDS ORDERED: chlordiazePOXIDE HCL 10 MG CAPSULE PO PRN (23:00)
[2018-07-23] MEDS: chlordiazePOXIDE HCL 10 MG CAPSULE PO SCH ×4 (06:36→22:18)
[2018-07-23] MEDS ORDERED: METHADONE HCL 10 MG TABLET ONE (09:56)
[2018-07-23] MEDS ORDERED: METHADONE HCL 40 MG DISPERSABLE TABLET ONE (09:57)
[2018-07-23] MEDS ORDERED: METHADONE 80 MG, METHADONE 30 MG PO SCH (10:00)
[2018-07-23] MEDS ORDERED: METHADONE HCL 10 MG TABLET PO SCH (10:00)
[2018-07-23] MEDS: PRENATAL VITAMINS W/ FOLIC ACID TABLET (FP) PO SCH (10:17)
[2018-07-23] MEDS: NICOTINE 14 MG/24 HOURS TOPICAL PATCH TD SCH (10:17)
[2018-07-23] MEDS: METHADONE 80 MG, METHADONE 30 MG PO SCH (10:18)
[2018-07-23] MEDS: ALBUTEROL SO4 8 GM HFA INHALER IH PRN (13:11)
--- NOTE | 2018-07-23 13:40 | PN ---
S CIWA - CIWA Score Nausea/Vomitin-No Nausea/No Vomiting Muscle Tremors: 2 Anxiety: 2 Agitation: 2 Paroxysmal Sweats: 2 Orientation: 0-Oriented Tacttile Disturbances: 0-None Auditory Disturbances: 0-None Visual Disturbances: 0-None Headache: 0-None Present CIWA-Ar Total Score: 8 BHS Progress Note (SOAP) Subjective: tired sweats groggy Objective: 07/23/18 13:39 Vital Signs Temperature 97.7 F 07/23/18 13:14 Pulse Rate 57 L 07/23/18 13:14 Respiratory Rate 16 07/23/18 13:14 Blood Pressure 113/73 07/23/18 13:14 O2 Sat by Pulse Oximetry (%) aaox3 ambulating no acute distress Assessment: 07/23/18 13:40 mild withdrawal sx Plan: continue detox increase fluids
[2018-07-23] MEDS: hydrOXYzine PAMOATE 25 MG CAPSULE (FP) PO PRN (14:53)
[2018-07-23] MEDS: IBUPROFEN 400 MG TABLET (FP) PO PRN (19:30)
[2018-07-23] MEDS: THIAMINE HCL 100 MG TABLET (FP) PO SCH (22:18)
[2018-07-24 08:14] VITALS: TEMP 97.7
[2018-07-24] MEDS ORDERED: METHADONE HCL 40 MG DISPERSABLE TABLET ONE (09:13)
[2018-07-24] MEDS ORDERED: METHADONE HCL 10 MG TABLET ONE (09:13)
[2018-07-24 09:58] VITALS: BP 137/73; PULSE 65
[2018-07-24] MEDS: chlordiazePOXIDE HCL 10 MG CAPSULE PO SCH (10:03)
[2018-07-24] MEDS: PRENATAL VITAMINS W/ FOLIC ACID TABLET (FP) PO SCH (10:03)
[2018-07-24] MEDS: NICOTINE 14 MG/24 HOURS TOPICAL PATCH TD SCH (10:04)
[2018-07-24] MEDS: METHADONE 80 MG, METHADONE 30 MG PO SCH (10:04)
--- NOTE | 2018-07-24 10:28 | PN ---
S CIWA - CIWA Score Nausea/Vomitin-No Nausea/No Vomiting Muscle Tremors: 1-None Visible, but [place] Anxiety: 1-Mildly Anxious Agitation: 1-Slight > Activity Paroxysmal Sweats: No Perspiration Orientation: 0-Oriented Tacttile Disturbances: 0-None Auditory Disturbances: 0-None Visual Disturbances: 0-None Headache: 0-None Present CIWA-Ar Total Score: 3 BHS Progress Note (SOAP) Subjective: i feel so much better i need to go home and go to my program. I have a court date on monday. Objective: 07/24/18 10:27 Vital Signs Temperature 97.7 F 07/24/18 09:58 Pulse Rate 65 07/24/18 09:58 Respiratory Rate 16 07/24/18 09:58 Blood Pressure 137/73 07/24/18 09:58 O2 Sat by Pulse Oximetry (%) aaox3 ambulating no acute distress Assessment: 07/24/18 10:27 no s/s withdrawal noted Plan: d/c today
--- NOTE | 2018-07-24 10:30 | DS ---
[facility] Detox Discharge Summary Admission Date: 07/20/18 Discharge Date: 07/24/18 - History Present History: Alcohol Dependence, Opioid Dependence, Sedative Dependence, MMTP - Physical Exam Results Vital Signs: Vital Signs Temperature 97.7 F 07/24/18 09:58 Pulse Rate 65 07/24/18 09:58 Respiratory Rate 16 07/24/18 09:58 Blood Pressure 137/73 07/24/18 09:58 O2 Sat by Pulse Oximetry (%) - Treatment Hospital Course: Detox Protocol Followed, Detoxed Safely, Responded well, Discharged Condition Good, Rehab Referral Accepted - Medication Discharge Medications: Ambulatory Orders Albuterol Sulfate Inhaler - [Ventolin Hfa Inhaler -] 1 - 2 inh PO Q4H 07/20/18 - Diagnosis (1) Alcohol dependence with uncomplicated withdrawal Current Visit: Yes Status: Chronic (2) Heroin abuse Current Visit: Yes Status: Chronic (3) IVDU (intravenous drug user) Current Visit: Yes Status: Chronic (4) Swelling of right knee joint Current Visit: Yes Status: Chronic (5) Asthma Current Visit: Yes Status: Chronic Qualifiers: Asthma severity: mild Asthma persistence: intermittent Asthma complication type: unspecified Qualified Code(s): J45.20 - Mild intermittent asthma, uncomplicated (6) Cannabis dependence Current Visit: Yes Status: Chronic (7) Cocaine dependence Current Visit: Yes Status: Chronic Qualifiers: Substance use status: uncomplicated Qualified Code(s): F14.20 - Cocaine dependence, uncomplicated (8) Hepatitis C Current Visit: Yes Status: Chronic Qualifiers: Viral hepatitis chronicity: chronic Hepatic coma status: without hepatic coma Qualified Code(s): B18.2 - Chronic viral hepatitis C (9) Methadone maintenance therapy patient Current Visit: Yes Status: Chronic (10) Nicotine dependence Current Visit: Yes Status: Chronic Qualifiers: Nicotine product type: cigarettes Substance use status: uncomplicated Qualified Code(s): F17.210 - Nicotine dependence, cigarettes, uncomplicated (11) Positive PPD Current Visit: Yes Status: Chronic (12) Substance induced mood disorder Current Visit: Yes Status: Chronic (13) Uncomplicated sedative, hypnotic or anxiolytic withdrawal Current Visit: No Status: Acute - AMA Did Patient Leave Against Medical Advice: No (going to MMTP program)
== END 2018-07-24 10:20 | disposition home or self-care (01) | DRG 773 ==
LOC: YASAS 12:17 → Y6N 23:34
PROVIDERS: ADMIT Surgery; ATTEND Surgery
PROC: HZ2ZZZZ Detoxification Services for Substance Abuse Treatment (ICD-10-PCS; principal; 2018-07-20)
DX: F10.230 Alcohol dependence with withdrawal, uncomplicated (principal); F13.230 Sedative, hypnotic or anxiolytic dependence with withdrawal, uncomplicated; F11.20 Opioid dependence, uncomplicated; F14.20 Cocaine dependence, uncomplicated; F12.20 Cannabis dependence, uncomplicated; F17.210 Nicotine dependence, cigarettes, uncomplicated; F19.24 Other psychoactive substance dependence with psychoactive substance-induced mood disorder; F31.9 Bipolar disorder, unspecified; F41.9 Anxiety disorder, unspecified; J45.20 Mild intermittent asthma, uncomplicated; B18.2 Chronic viral hepatitis C; M25.461 Effusion, right knee; R76.11 Nonspecific reaction to tuberculin skin test without active tuberculosis; R68.2 Dry mouth, unspecified; Z91.81 History of falling; Z91.19 Patient's noncompliance with other medical treatment and regimen
CPT/HCPCS: 36415; 80053; 81025; 85027; 86593

== ENCOUNTER 2020-04-08 10:38 | Inpatient (IN) | payer OTHER ==
[2020-04-08 12:43] VITALS: BMI 31.6
[2020-04-08] MEDS ORDERED: NICOTINE POLACRILEX 2 MG GUM BUC PRN (13:26)
[2020-04-08] MEDS ORDERED: ONDANSETRON *ODT* 4 MG TABLET SL PRN (13:26)
[2020-04-08] MEDS ORDERED: MENTHOL/PHENOL 1 EACH UD MM PRN (13:26)
[2020-04-08] MEDS ORDERED: BISMUTH SUBSALICYLATE 524 MG/30 ML UD PO PRN (13:26)
[2020-04-08] MEDS ORDERED: MAG HYDROX/AL HYDROX/SIMETH 30 ML UNIT-DOSE CUP PO PRN (13:26)
[2020-04-08] MEDS ORDERED: ACETAMINOPHEN 325 MG TABLET (FP) PO PRN ×2 (13:26)
[2020-04-08] MEDS ORDERED: IBUPROFEN 400 MG TABLET (FP) PO PRN (13:26)
[2020-04-08] MEDS ORDERED: chlordiazePOXIDE HCL 25 MG CAPSULE PO PRN (13:26)
[2020-04-08] MEDS ORDERED: MAGNESIUM HYDROX 2400MG/30ML ORAL SUSPENSION 30 ML CUP PO PRN (13:26)
[2020-04-08] MEDS ORDERED: MAGNESIUM CITRATE 300 ML BOTTLE PO PRN (13:26)
[2020-04-08] MEDS ORDERED: METHOCARBAMOL 500 MG TABLET PO PRN (13:26)
[2020-04-08] MEDS: hydrOXYzine PAMOATE 25 MG CAPSULE (FP) PO SCH ×3 (14:44→22:32)
[2020-04-08] MEDS: ALBUTEROL SO4 HFA INHALER IH SCH ×4 (14:45→22:32)
[2020-04-08] MEDS: NICOTINE 21 MG/24 HOURS TOPICAL PATCH TD SCH (16:39)
[2020-04-08] MEDS: PRENATAL VITAMINS W/ FOLIC ACID TABLET (FP) PO SCH (16:39)
[2020-04-08] MEDS: chlordiazePOXIDE HCL 25 MG CAPSULE PO SCH ×3 (16:43→22:31)
[2020-04-08 19:33] LABS: POTASSIUM 4.4 mmol/L (3.5-5.1)
[2020-04-08 19:37] LABS: HEMATOCRIT 39.9 % (32.4-45.2); HEMOGLOBIN 13.4 GM/dL (10.7-15.3); MCH 28.9 pg (25.7-33.7); MCHC 33.6 g/dl (32.0-36.0); MEAN CELL VOLUME 85.9 fl (80-96); MEAN PLT VOLUME 8.3 fl (7.5-11.1); PLATELET COUNT 235 K/MM3 (134-434); RBC 4.65 M/mm3 (3.60-5.2); RDW 12.6 % (11.6-15.6)
[2020-04-08 19:38] LABS: ALBUMIN 3.7 g/dl (3.4-5.0); BLOOD UREA NITROGEN 11.1 mg/dL (7-18); CALCIUM 8.6 mg/dL (8.5-10.1)
[2020-04-08 19:42] LABS: CREATININE 0.7 mg/dL (0.55-1.3)
[2020-04-08 19:43] LABS: BILIRUBIN,TOTAL 0.6 mg/dL (0.2-1); TOT PROT 7.2 g/dl (6.4-8.2)
[2020-04-08 20:29] LABS: HIV INTERPRETATION NEGATIVE (NEGATIVE)
[2020-04-08] MEDS: MELATONIN 5 MG TABLETS PO SCH (22:31)
[2020-04-08] MEDS: THIAMINE HCL 100 MG TABLET (FP) PO SCH (22:31)
[2020-04-09] MEDS: chlordiazePOXIDE HCL 25 MG CAPSULE PO SCH ×4 (06:11→22:30)
[2020-04-09] MEDS: METHADONE HCL 40 MG DISPERSABLE TABLET PO SCH (06:11)
[2020-04-09] MEDS: hydrOXYzine PAMOATE 25 MG CAPSULE (FP) PO SCH ×2 (06:11→10:16)
[2020-04-09] MEDS: ALBUTEROL SO4 HFA INHALER IH SCH ×6 (06:14→22:32)
[2020-04-09] MEDS: PRENATAL VITAMINS W/ FOLIC ACID TABLET (FP) PO SCH (10:16)
[2020-04-09] MEDS: NICOTINE 21 MG/24 HOURS TOPICAL PATCH TD SCH (10:16)
[2020-04-09] MEDS ORDERED: SIMETHICONE 80 MG TAB.CHEW (FP) PO PRN (13:07)
[2020-04-09] MEDS ORDERED: hydrOXYzine PAMOATE 25 MG CAPSULE (FP) PO PRN (13:07)
[2020-04-09] MEDS: MELATONIN 5 MG TABLETS PO SCH (22:29)
[2020-04-09] MEDS: THIAMINE HCL 100 MG TABLET (FP) PO SCH (22:29)
[2020-04-10] MEDS: ALBUTEROL SO4 HFA INHALER IH SCH ×6 (04:46→22:08)
[2020-04-10] MEDS: chlordiazePOXIDE HCL 25 MG CAPSULE PO SCH ×4 (06:43→22:09)
[2020-04-10] MEDS: METHADONE HCL 40 MG DISPERSABLE TABLET PO SCH (06:44)
[2020-04-10] MEDS: PRENATAL VITAMINS W/ FOLIC ACID TABLET (FP) PO SCH (10:19)
[2020-04-10] MEDS: NICOTINE 21 MG/24 HOURS TOPICAL PATCH TD SCH (10:20)
[2020-04-10] MEDS: THIAMINE HCL 100 MG TABLET (FP) PO SCH (22:09)
[2020-04-10] MEDS: MELATONIN 5 MG TABLETS PO SCH (22:09)
[2020-04-11] MEDS ORDERED: chlordiazePOXIDE HCL 10 MG CAPSULE PO PRN
[2020-04-11] MEDS: ALBUTEROL SO4 HFA INHALER IH SCH ×3 (02:48→10:32)
[2020-04-11] MEDS: chlordiazePOXIDE HCL 10 MG CAPSULE PO SCH ×2 (06:29→10:33)
[2020-04-11] MEDS: METHADONE HCL 40 MG DISPERSABLE TABLET PO SCH (06:29)
[2020-04-11] MEDS: PRENATAL VITAMINS W/ FOLIC ACID TABLET (FP) PO SCH (10:32)
[2020-04-11] MEDS: NICOTINE 21 MG/24 HOURS TOPICAL PATCH TD SCH (10:33)
[2020-04-11 10:34] VITALS: BP 120/80; PULSE 85; TEMP 97.3
[2020-04-12] MEDS ORDERED: chlordiazePOXIDE HCL 10 MG CAPSULE PO SCH (05:00)
[2020-04-13] MEDS ORDERED: chlordiazePOXIDE HCL 10 MG CAPSULE PO ONE (05:00)
== END 2020-04-11 11:20 | disposition home or self-care (01) | DRG 773 ==
LOC: YASAS 10:38 → Y3N 12:29
PROVIDERS: ADMIT Allergy & Immunology; ATTEND Allergy & Immunology
PROC: HZ2ZZZZ Detoxification Services for Substance Abuse Treatment (ICD-10-PCS; principal; 2020-04-08)
DX: F10.230 Alcohol dependence with withdrawal, uncomplicated (principal); F11.20 Opioid dependence, uncomplicated; F17.210 Nicotine dependence, cigarettes, uncomplicated; F31.9 Bipolar disorder, unspecified; G47.00 Insomnia, unspecified; I10 Essential (primary) hypertension; J45.20 Mild intermittent asthma, uncomplicated; K70.30 Alcoholic cirrhosis of liver without ascites; B18.2 Chronic viral hepatitis C; Z56.0 Unemployment, unspecified
CPT/HCPCS: 36415; 71046-TC-FY; 80053; 81025; 85027; 86780; 87389; C9803; U0003